=== PATIENT | female | born 1995 | race Two or more races ===

== ENCOUNTER 2017-05-28 15:28 | Emergency (ER) | payer OTHER ==
[~2017-05-28] VITALS: Ht 170.2 cm; Wt 64.5 kg
[2017-05-28 16:00] VITALS: BP 104/71; PULSE 81; RESP 16; O2SAT 100
[2017-05-28 16:28] LABS: APPEARANCE,URINE HAZY (CLEAR,HAZY); COLOR,URINE YELLOW (YELLOW); PH,URINE 6.5 (5.0-8.0)
[2017-05-28 16:29] LABS: OCCULT BLOOD,URINE LARGE (NEGATIVE)
--- NOTE | 2017-05-28 17:31 | ED.REPORT ---
HPI-General Illness Date of Service May 28, 2017 ED Provider: Tae Carrillo MD The pt is a 21 y/o, 9 week , female presenting to the ED complaining of constipation onset a week ago. She has not had a bowel movement in the last week besides yesterday which was "not as much". She is also complaining of dysuria, nausea during the entire , and lower abdominal pain rated as 5 /10 severity, w/o radiation and decreasing while she is laying on her side.Denies vaginal discharge, vaginal bleeding, vomiting, chest pain, SOB, focal weakness. Nursing Notes Stated Complaint: VAGINAL BURNING, CONSTIPATION + PREG Chief Complaint: General Complaint Nursing Notes Reviewed: Yes Allergies: Coded Allergies: No Known Allergies (Unverified , 05/28/17) Scheduled Cephalexin (Cephalexin) 500 Mg Capsule 500 MG PO QID General Time Seen by MD: 16:19 Chief Complaint Other (Constipation) Hx Obtained From: Patient Arrived By: Walk-in Sudden in Onset?: Yes Onset Occurred: 1 week ago Symptom Duration: Since onset Location: : Abdomen (Lower ) Radiation: : Does not radiate Severity: Current: Pain level 5 out of 10 Recent Healthcare: No recent doctor visit, No recent hospitalization Similar Sx Previous: Yes Past Medical History Past Medical History 9 weeks Smoking History Never Smoker Social History Alcohol Use: Denies alcohol use Drug Use: Denies drug use Other Social History: Good social support Ambulatory Status Independent Review of Systems Full Review of Systems Respiratory: Denies: Shortness of breath Cardiovascular: Denies: Chest pain GI: Reports: Abdominal pain (Lower ), Constipation, Nausea, Denies: Vomiting Female: Reports: Dysuria, Denies: Vaginal bleeding - abnl, Vaginal discharge Neurologic: Denies: Focal weakness Complete sys rev & neg: except as marked. Physical Exam Constitutional: Well-developed, well-nourished. Not diaphoretic. Head: Normocephalic and atraumatic. Mouth/Throat: Oropharynx is clear and moist. No oropharyngeal exudate. Eyes: EOM are normal. Pupils are equal, round, and reactive to light. Neck: Supple, no tracheal deviation. Cardiovascular: Normal rate, regular rhythm. Equal and intact distal pulses throughout. Pulmonary/Chest: Effort normal and breath sounds normal. No respiratory distress. Abdominal: Soft. No distension. There is no rebound, or guarding. Bowel sounds present. Mild suprapubic tenderness. Musculoskeletal: Range of motion grossly intact, moving all extremities. No edema or tenderness appreciated. Neurological: AOx3. Grossly nonfocal exam. Strength and sensation intact and equal to bilateral upper and lower extremities. Straight leg test negative. Skin: Warm and dry, no rashes or pallor appreciated. Psychiatric: Appropriate mood and affect. Behavior appears normal. Vital Signs Vital Signs Date Time Temp Pulse Resp B/P Pulse Ox O2 Delivery O2 Flow Rate FiO2 05/28/17 18:45 77 108/69 100 Room Air 05/28/17 16:00 35.8 81 16 104/71 100 Room Air Interpretation & Diagnostics Lab Results Interpretation Result Diagram: 05/28/17 1830 05/28/17 1830 Test 05/28/17 16:00 05/28/17 18:30 Urine Color Yellow (YELLOW) Urine Appearance Hazy (CLEAR,HAZY) Urine pH 6.5 (5.0-8.0) Urine Specific [place] 1.025 (1.003-1.035) Urine Protein 300mg/dL (NEG,TRACE) Urine Glucose (UA) 100mg/dL (NEGATIVE) Urine Ketones Tracemg/dL (NEGATIVE) Urine Occult Blood Large (NEGATIVE) Urine Nitrite Positive (NEGATIVE) Urine Bilirubin Negative (NEGATIVE) Urine Urobilinogen 2.0mg/dL (NORMAL) Urine Leukocyte Esterase Moderate (NEGATIVE) Urine RBC 11-50/hpf (0-2) Urine WBC 6-10/hpf (0-5) Urine Epithelial Cells None/hpf (NONE-MOD) Urine Crystals None seen (NONE SEEN) Urine Bacteria Few/hpf (NONE-FEW) Urine Hyaline Casts None/lpf (NONE) Urine Granular Casts None seen (NONE SEEN) Urine Waxy Casts None seen (NONE SEEN) Urine Red Blood Cell Casts None seen (NONE SEEN) Urine White Blood Cell Casts None seen (NONE SEEN) Urine Mucus None seen (None Seen) Urine Trichomonas None seen (NONE SEEN) Urine Yeast None (NONE SEEN) Urinalysis Comment None Urine Culture Reflexed Indicated White Blood Count 20.6th/mm3 (3.8-10.1) Red Blood Count 5.39mil/mm3 (3.90-5.20) Hemoglobin 15.4g/dL (12.0-15.6) Hematocrit 41.6% (35.0-46.0) Mean Corpuscular Volume 77.2fL (81-100) Mean Corpuscular Hemoglobin 28.6pg (27.0-35.0) Mean Corpuscular Hemoglobin Concent 37.0% (32.0-37.0) Red Cell Distribution Width 13.2% (12.3-15.4) Platelet Count 268bil/L (150-400) Neutrophils (%) (Auto) 79.2% (40-74) Lymphocytes (%) (Auto) 14.7% (14-46) Monocytes (%) (Auto) 5.2% (4-12) Eosinophils (%) (Auto) 0.5% (0-5) Basophils (%) (Auto) 0.1% (0-3) Sodium Level 138mEq/L (134-144) Potassium Level 4.2mEq/L (3.5-5.2) Chloride Level 100mEq/L (97-108) Carbon Dioxide Level 19mmol/L (18-29) Blood Urea Nitrogen 10mg/dL (6-20) Creatinine 0.46mg/dL (0.57-1.00) Estimat Glomerular Filtration Rate 251mL/min (>59) Glucose Level 57mg/dL (60-99) Calcium Level 10.3mg/dL (8.5-10.1) Magnesium Level 1.8mg/dL (1.6-2.6) Total Bilirubin 0.5mg/dL (0.0-1.2) Aspartate Amino Transf (AST/SGOT) 25U/L (0-50) Alanine Aminotransferase (ALT/SGPT) 12U/L (0-32) Alkaline Phosphatase 57U/L (25-150) Total Protein 8.9g/dL (6.4-8.4) Albumin 4.7g/dL (3.4-5.0) Lipase 29U/L (13-60) HCG Beta Subunit [id number]/mL US Focused OB PROCEDURE: US OB<14 WKS+OB TRANSVAG IMPRESSION: No torsion suspected, single living intrauterine gestation with the delivery date projected to be centered on the 01/02/17, plus or -5 days. Current estimated gestational age is 8 weeks 5 days, plus or -5 days. Dictated by: Tai Sarmiento M.D. on 05/28/2017 at 19:10 Approved by: Tai Sarmiento M.D. on 05/28/2017 at 19:13 Exam Performed by: Allied health pract Exam Interpreted by: Radiologist Re-Eval/Medical Decision Med Decision/Clinical Course 21-year-old female presenting to the ED for evaluation of dysuria and mild, lower abdominal pain. Afebrile, nontoxic appearing. Ultrasound does not demonstrate any evidence of ectopic or ovarian torsion. She does have a IUP present. Her urinalysis is concerning for infection and she does have a white blood cell count of 20.6 here. No right lower quadrant pain or tenderness. Plan discharge home with antibiotics, close GUEST ROOM INSPECTOR follow-up. Careful return precautions were discussed; patient agreeable to the plan as stated, no further questions. Time of Eval: 21:11 Re-Evaluation/Progress Note: Pt rechecked. Informed pt of plan for treatment. Pt understands and agrees with plan for treatment. F/U instructions and RTER warnings given. All questions addressed. Counseled Regarding: Diagnosis, Lab results, Need for follow-up, When/why to return to ED Discharge & Departure Primary Impression: Urinary tract infection Urinary tract infection type: site unspecified Hematuria presence: without hematuria Qualified Code: N39.0 - Urinary tract infection, site not specified Disposition: Home Discharge Condition All VS Reviewed: Yes Condition: Stable Additional Instructions: Thank you for coming into the emergency department today. You were diagnosed with an urinary tract infection. Please take the medication as prescribed. Please follow up with you GUEST ROOM INSPECTOR in the next 1-2 days and return to the emergency department if you experience any new or worsening symptoms. I hope you feel better soon. Referrals: [facility] Scribe Attestation Portions of this note were transcribed by Jerod Concepcion. Dr. Lorena Zimmerman personally performed the history, physical exam and medical decision- making; I reviewed and confirmed the accuracy of the information in the transcribed note. Signed by: Naomie Edwards, 05/28/17 and [id number]. copies to: [facility] Tae Carrillo MD May 28, 2017 17:31 Jerod Concepcion May 28, 2017 17:46 Scribe Attestation Portions of this note were transcribed by Jerod Concepcion. Dr. Lorena Zimmerman personally performed the history, physical exam and medical decision- making; I reviewed and confirmed the accuracy of the information in the transcribed note. Signed by: Naomie Edwards, 05/28/17 and [id number]. copies to: [facility] Tae Carrillo MD May 28, 2017 17:31 Jerod Concepcion May 28, 2017 17:46
[2017-05-28 18:45] VITALS: BP 108/69; PULSE 77; O2SAT 100
[2017-05-28 18:45] LABS: BASOPHILS % (AUTO) 0.1 % (0-3); EOSINOPHILS % (AUTO) 0.5 % (0-5); MONOCYTES % (AUTO) 5.2 % (4-12); Mean Corpuscular Hemoglobin 28.6 pg (27.0-35.0); Mean Corpuscular Volume 77.2 fL (81-100); NEUTROPHILS % (AUTO) 79.2 % (40-74); Platelet Count 268 bil/L (150-400)
--- NOTE | 2017-05-28 19:14 | DRSVH ---
PROCEDURE: US OB<14 WKS+OB TRANSVAG INDICATIONS: please perform TVUS, eval torsion, ectopic, TOA OUTSIDE/PRIOR DATING DATA: Last menstrual period (LMP): 03/26/17. LMP-based estimated date of delivery (DERRELL): 12/31/17. First dating scan (date and location): This study, 05/28/17. Estimated date of delivery (DERRELL) from first dating scan: 01/02/17, plus or -5 days. TECHNIQUE: Real-time scanning was performed of the fetus and maternal pelvic organs, with image documentation. Endovaginal scanning was also performed to better visualize the fetus and maternal ovaries. COMPARISON: None. FINDINGS: Embryo: There is a single living intrauterine gestation with crown-rump length 2.6 cm which correlat es with a gestational age estimate of 8 weeks 5 days, plus or -5 days. Measurement variability in dating: +/- 4 weeks by LMP, +/- 7 days by mean sac diameter (use before 6 weeks gestation if crown-rump length not able to be measured), +/- 5 days by crown-rump length (up t o 8 weeks 6 days gestation), +/- 7 days by crown-rump length (up to 13 weeks 6 days gestation). Maternal organs: Ovaries appear normal considering gestational status. Limited images through the k idneys demonstrate no hydronephrosis. IMPRESSION: No torsion suspected, single living intrauterine gestation with the delivery date projec ciera to be centered on the 01/02/17, plus or -5 days. Current estimated gestational age is 8 weeks 5 da ys, plus or -5 days. Dictated by: Tai Sarmiento M.D. on 05/28/2017 at 19:10 Approved by: Tai Sarmiento M.D. on 05/28/2017 at 19:13
[2017-05-28 20:14] LABS: Magnesium 1.8 mg/dL (1.6-2.6)
[2017-05-28] MEDS ORDERED: CEPH500C PO (21:15)
== END 2017-05-28 21:29 | disposition home or self-care (01) ==
LOC: SED 15:28
DX: O23.41 Unspecified infection of urinary tract in pregnancy, first trimester (principal); O98.811 Other maternal infectious and parasitic diseases complicating pregnancy, first trimester; B95.1 Streptococcus, group B, as the cause of diseases classified elsewhere; B96.89 Other specified bacterial agents as the cause of diseases classified elsewhere; Z3A.09 9 weeks gestation of pregnancy

== ENCOUNTER 2017-07-12 21:39 | Emergency (ER) | payer OTHER ==
[~2017-07-12] VITALS: Ht 170.2 cm; Wt 65.9 kg
[~2017-07-12 21:39] MED LIST: CEPH500C PO
[2017-07-12 22:38] VITALS: BP 97/64; PULSE 87; O2SAT 100
--- NOTE | 2017-07-12 23:05 | ED.REPORT ---
HPI-Abd Pain F Under 40 Date of Service Jul 12, 2017 ED Provider: Dr. Mustafa Pt is a 16 week 21 y/o female presenting to the ED c/o mild lower abdominal cramping onset 17:00 today. She c/o associated dysuria. This is her first . Pt denies fever, nausea, vomiting, vaginal bleeding. She was seen in the ED May 28 2017 and diagnosed with UTI. Nursing Notes Stated Complaint: , MILD ABDOMINAL CRAMPING,VAGINAL BURNING Chief Complaint: Female Abdominal Pain Nursing Notes Reviewed: Yes Allergies: Coded Allergies: No Known Allergies (Unverified , 05/28/17) Scheduled Cephalexin (Cephalexin) 500 Mg Capsule 500 MG PO QID General Time Seen by MD: 23:05 Chief Complaint Abdominal pain Hx Obtained From: Patient Arrived By: Walk-in Sudden in Onset?: No Onset Occurred: 5 - 8 hours ago Symptom Duration: Since onset Progression since Onset: Constant Location: : Abdomen lower Quality: Cramping Severity: Current: Mild Severity: Maximum: Mild Past Medical History Past Medical History 16 weeks (07/12/17) Past Surgical History None reported Smoking History Never Smoker Social History Alcohol Use: Denies alcohol use Drug Use: Denies drug use Other Social History: Good social support Ambulatory Status Independent Review of Systems Constitutional: Denies: Chills, Fever GI: Reports: Abdominal pain, Denies: Nausea, Vomiting Female: Reports: Dysuria Complete sys rev & neg: except as marked. Physical Exam Initial Vital Signs Vital Signs (First) Date Time Temp Pulse Resp B/P Pulse Ox O2 Delivery O2 Flow Rate FiO2 07/12/17 22:38 37.0 87 97/64 100 Room Air 07/13/17 00:04 16 Initial VS: Reviewed, Vital signs normal Head / Eyes: Atraumatic, Normocephalic ENT: Mucous membranes moist, Conjunctiva normal, No scleral icterus Neck: Supple, Full range of motion Extremities: Vascular intact, Neuro intact, No swelling Skin: Warm, Dry, No cyanosis Neurologic: Alert, Oriented, Nonfocal Psychiatric: Mood/affect normal, Behavior normal, Normal thought content General/Constitutional: Awake, Alert, No acute distress, Well appearing, Cooperative, Not toxic appearing Respiratory / Chest: Breath sounds NL, Breath sounds = bilat, No respiratory distress, No rales, No rhonchi, No wheezing Cardiovascular: Heart rate NL, Regular rhythm, Heart sounds NL, No murmurs Abdomen: Atraumatic, Soft, Non-tender, No guarding, No rebound, No distention, No palpable mass Back: Full range of motion, Painless range of motion : FHTs NL (160 bpm), FHT present by U/S, Contractions not present, movement present, Uterine size c/w dates, lie nl for age Interpretation & Diagnostics Lab Results Interpretation Test 07/12/17 22:57 07/12/17 23:06 Hold Urine Received (Received) Urine Color Yellow (YELLOW) Urine Appearance Hazy (CLEAR,HAZY) Urine pH 6.5 (5.0-8.0) Urine Specific [place] 1.020 (1.003-1.035) Urine Protein Negativemg/dL (NEG,TRACE) Urine Glucose (UA) Negativemg/dL (NEGATIVE) Urine Ketones Tracemg/dL (NEGATIVE) Urine Occult Blood Negative (NEGATIVE) Urine Nitrite Negative (NEGATIVE) Urine Bilirubin Negative (NEGATIVE) Urine Urobilinogen 1.0mg/dL (NORMAL) Urine Leukocyte Esterase Negative (NEGATIVE) Urine RBC 0-2/hpf (0-2) Urine WBC 11-50/hpf (0-5) Urine Epithelial Cells Few/hpf (NONE-MOD) Urine Crystals None seen (NONE SEEN) Urine Bacteria Many/hpf (NONE-FEW) Urine Hyaline Casts None/lpf (NONE) Urine Granular Casts None seen (NONE SEEN) Urine Waxy Casts None seen (NONE SEEN) Urine Red Blood Cell Casts None seen (NONE SEEN) Urine White Blood Cell Casts None seen (NONE SEEN) Urine Mucus Present (None Seen) Urine Trichomonas None seen (NONE SEEN) Urine Yeast None (NONE SEEN) Urinalysis Comment None Urine Culture Reflexed Indicated Urinalysis Interpretation Positive WBC's, Positive bacteria Re-Eval/Medical Decision Re-Evaluation/Progress : Time of Eval: 23:47 Re-Evaluation/Progress Note: Pt rechecked. Discussed UA findings. Informed pt of plan for discharge. Pt understands and agrees with plan for discharge. F/U instructions and RTER warnings given. All questions addressed. Counseled Regarding: Diagnosis, Lab results, Need for follow-up, When/why to return to ED Discharge & Departure Primary Impression: Urinary tract infection Urinary tract infection type: site unspecified Hematuria presence: without hematuria Qualified Code: N39.0 - Urinary tract infection, site not specified Additional Impression: Currently Weeks of gestation: 16 weeks Qualified Code: Z3A.16 - 16 weeks gestation of Disposition: Home Discharge Condition All VS Reviewed: Yes Condition: Stable Patient Instructions: Urinary Tract Infection in Women (ED) Additional Instructions: The urine shows signs of infection. The baby appears very well today. Take Keflex 4x daily for 7 days. Return to the emergency department for any new or worsening symptoms. Follow-up with OB in 3-5 days to discuss the urine culture results. Ref[facility]: [facility] Attestation Portions of this note were transcribed by Stephen Avila. I, Dr. Mustafa personally performed the history, physical exam and medical decision-making; I reviewed and confirmed the accuracy of the information in the transcribed note. Abbe Mustafa DO Jul 12, 2017 23:05 STEPHEN AVILA Jul 12, 2017 23:15
[2017-07-12 23:32] LABS: APPEARANCE,URINE HAZY (CLEAR,HAZY); COLOR,URINE YELLOW (YELLOW); OCCULT BLOOD,URINE NEGATIVE (NEGATIVE); PH,URINE 6.5 (5.0-8.0)
[2017-07-13 00:04] VITALS: BP 118/55; PULSE 85; RESP 16; O2SAT 100
== END 2017-07-13 00:06 | disposition home or self-care (01) ==
LOC: SED 21:39
DX: O23.42 Unspecified infection of urinary tract in pregnancy, second trimester (principal); B96.20 Unspecified Escherichia coli [E. coli] as the cause of diseases classified elsewhere; Z3A.16 16 weeks gestation of pregnancy

== ENCOUNTER 2017-07-28 21:30 | Emergency (ER) | payer OTHER ==
[~2017-07-28] VITALS: Ht 170.2 cm; Wt 69.1 kg
[2017-07-28 21:40] VITALS: BP 101/56; PULSE 81; RESP 16; O2SAT 99
--- NOTE | 2017-07-28 21:50 | ED.REPORT ---
HPI-Preg Under 20 Weeks Date of Service Jul 28, 2017 ED Provider: Javier Puckett MD The pt is a 21 y/o 17 weeks female () who presents to the ED complaining of some spotting, onset 2 hours ago. Associated sx include abdominal cramping, vaginal discharge, burning sensation in the vaginal area during urination and intermittently at rest, and dysuria. She denies perineal itching. Her care is done at [facility] ([facility] doctor). heart tones were recorded at 140 in the ED. The pt is Rh positive. Nursing Notes Stated Complaint: 17 WKS , VAGINAL BLEEDING AND CRAMPING Chief Complaint: Female Abdominal Pain Nursing Notes Reviewed: Yes Allergies: Coded Allergies: No Known Allergies (Unverified , 05/28/17) Scheduled Cephalexin (Cephalexin) 500 Mg Capsule 500 MG PO QID General Time Seen by Provider: 21:52 Chief Complaint Vaginal bleeding (spotting) Hx Obtained From: Patient Arrived By: Walk-in Onset Occurred: 1 - 4 hours ago Symptom Duration: Since onset Location: : Periumbilical Quality: Cramping Radiation: : None Severity: Current: Moderate Severity: Maximum: Moderate Recent Healthcare: Recent doctor visit Past Medical History Past Medical History Notes: US on 05/28/17 shows 8 week and 5 day living IUG. On 07/12/17 urine grew out E-coli sensitive to everything but TRIMETHOPRIM/SULFAMETHOXAZOLE Past Medical History 17 weeks (07/28/17) Past Surgical History None reported Smoking History Never Smoker Social History Alcohol Use: Denies alcohol use Drug Use: Denies drug use Other Social History: Good social support Ambulatory Status Independent Review of Systems Reports: burning sensation in the vaginal area when urinating and intermittently at rest. Denies: perineal itching GI: Reports: Abdominal pain Female: Reports: Dysuria, , Vaginal bleeding - abnl (spotting), Vaginal discharge Complete sys rev & neg: except as marked. Physical Exam Physical Exam Notes: heart tones present at 140 Initial Vital Signs Vital Signs (First) Date Time Temp Pulse Resp B/P Pulse Ox O2 Delivery O2 Flow Rate FiO2 07/28/17 21:40 36.9 81 16 101/56 99 Room Air Initial VS: Reviewed Head / Eyes: Atraumatic, Normocephalic Neck: Supple, Non-tender, Full range of motion Respiratory: Breath sounds normal, Clear to auscultation, No respiratory distress Cardiovascular: Regular rate & rhythm, Heart sounds normal, Intact distal pulses Extremities: Vascular intact, Neuro intact, No swelling, No tenderness Skin: Warm, Dry, No cyanosis Neurologic: Alert, Oriented, Nonfocal General/Constitutional: Awake, Alert, No acute distress, Well appearing, Cooperative Abdomen: Atraumatic, Soft, Non-tender, No guarding, No rebound, BS normoactive Fundus just below the umbilicus. Female Genitourinary: Mold Technician present, Atraumatic, External genitalia NL, No bleeding, No discharge Cervix is long and closed. : Exam deferred Back: Atraumatic, Full range of motion, Painless range of motion, Non-tender, No CVA tenderness Interpretation & Diagnostics Lab Results Interpretation Test 07/28/17 22:13 07/28/17 22:27 Urine Color Yellow (YELLOW) Urine Appearance Cloudy (CLEAR,HAZY) Urine pH 7.5 (5.0-8.0) Urine Specific [place] 1.020 (1.003-1.035) Urine Protein Negativemg/dL (NEG,TRACE) Urine Glucose (UA) Negativemg/dL (NEGATIVE) Urine Ketones Negativemg/dL (NEGATIVE) Urine Occult Blood Negative (NEGATIVE) Urine Nitrite Negative (NEGATIVE) Urine Bilirubin Negative (NEGATIVE) Urine Urobilinogen 1.0mg/dL (NORMAL) Urine Leukocyte Esterase Negative (NEGATIVE) Urine RBC 0-2/hpf (0-2) Urine WBC 0-5/hpf (0-5) Urine Epithelial Cells Occasional/hpf (NONE-MOD) Urine Crystals Amorphous phosphates Urine Bacteria Few/hpf (NONE-FEW) Urine Hyaline Casts None/lpf (NONE) Urine Granular Casts None seen (NONE SEEN) Urine Waxy Casts None seen (NONE SEEN) Urine Red Blood Cell Casts None seen (NONE SEEN) Urine White Blood Cell Casts None seen (NONE SEEN) Urine Mucus None seen (None Seen) Urine Trichomonas None seen (NONE SEEN) Urine Yeast None (NONE SEEN) Urinalysis Comment None Urine Culture Reflexed Not indicated Hold [place] Top Tube Received (Received) Wet prep: Few white cells No bacteria No yeast No Trichomonas Re-Eval/Medical Decision Source of Hx: Old records Re-Evaluation/Progress : Time of Eval: 23:22 Re-Evaluation/Progress Note: Rechecked pt. Discussed lab results, diagnosis and plan to discharge. Pt understands and agrees with the plan. F/U instruction and RTER warning given. All questions addressed Counseled Regarding: Diagnosis, Lab results, Need for follow-up, When/why to return to ED Discharge & Departure Primary Impression: Vaginal spotting Additional Impression: Intrauterine Disposition: Home Discharge Condition All VS Reviewed: Yes Condition: Stable Additional Instructions: Emergency department evaluation tonight included interview, examination and labs. Examination is reassuring, there is presently no bleeding, no sign of infection in the urine or vaginal infection. It is common to have some mild spotting early in . Go home and rest, follow-up with care provider next week. Emergency department for severe cramping increasing vaginal bleeding fevers uncontrolled vomiting. Referrals: OTHER,PHYSICIAN Scribe Attestation Portions of this note were transcribed by Loan Schwarz. I,, personally performed the history,physical exam and medical decision-making;I reviewed and confirmed the accuracy of the information in the transcribed note. Signed by Naomie Steven. 07/28/17 Javier Puckett MD Jul 28, 2017 21:49 Loan Schwarz Jul 28, 2017 21:59
[2017-07-28 22:27] LABS: APPEARANCE,URINE CLOUDY (CLEAR,HAZY); COLOR,URINE YELLOW (YELLOW); OCCULT BLOOD,URINE NEGATIVE (NEGATIVE); PH,URINE 7.5 (5.0-8.0)
== END 2017-07-28 23:34 | disposition home or self-care (01) ==
LOC: SED 21:30
DX: O26.852 Spotting complicating pregnancy, second trimester (principal); O26.892 Other specified pregnancy related conditions, second trimester; R10.9 Unspecified abdominal pain; Z3A.17 17 weeks gestation of pregnancy